=== PATIENT | male | born 2000 | race Native Hawaiian/Other Pacific Islander ===

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

== ENCOUNTER 2019-10-11 20:22 | Emergency (ER) | payer OTHER ==
[~2019-10-11] VITALS: Ht 177.8 cm; Wt 156.5 kg
[2019-10-11 21:39] LABS: PLATELET COUNT 275 K/uL (142-355)
[2019-10-11 21:43] LABS: POTASSIUM 3.9 mmol/L (3.6-5.2)
[2019-10-11 22:34] VITALS: BP 158/69; TEMP 98.2
== END 2019-10-11 22:35 | disposition home or self-care (01) ==
LOC: ED 20:22
PROVIDERS: Emergency Medicine
DX: J06.9 Acute upper respiratory infection, unspecified (principal); R11.2 Nausea with vomiting, unspecified; Z03.818 Encounter for observation for suspected exposure to other biological agents ruled out
CPT/HCPCS: 36600; 80053; 82805; 85027; 87502; 87635; 87651; 99283; J2405; U0002

== ENCOUNTER 2020-01-18 19:11 | Emergency (ER) | payer OTHER ==
[~2020-01-18] VITALS: Ht 177.8 cm; Wt 152.9 kg
[2020-01-18 20:34] VITALS: BP 136/66; TEMP 98.8
== END 2020-01-18 20:35 | disposition home or self-care (01) ==
LOC: ED 19:11
DX: J01.00 Acute maxillary sinusitis, unspecified (principal)
CPT/HCPCS: 96372; 99283; J1100